=== PATIENT | male | born 1990 ===

== ENCOUNTER → 2019-05-12 | Outpatient (CLI) | payer OTHER | LOC: MHCPAIN 08:46 | DX: G89.29 Other chronic pain (principal); M47.817 Spondylosis without myelopathy or radiculopathy, lumbosacral region; M53.3 Sacrococcygeal disorders, not elsewhere classified | CPT/HCPCS: G0463 ==

== ENCOUNTER → 2019-05-15 | Outpatient (CLI) | payer OTHER | LOC: MHCPAIN 07:42 | DX: M47.817 Spondylosis without myelopathy or radiculopathy, lumbosacral region (principal); M53.3 Sacrococcygeal disorders, not elsewhere classified; M54.16 Radiculopathy, lumbar region | CPT/HCPCS: G0260; J1040; Q9967 ==

== ENCOUNTER → 2019-05-26 | Outpatient (CLI) | payer OTHER | LOC: MHCPAIN 09:30 | DX: G89.29 Other chronic pain (principal); M47.817 Spondylosis without myelopathy or radiculopathy, lumbosacral region; M53.3 Sacrococcygeal disorders, not elsewhere classified | CPT/HCPCS: G0463 ==

== ENCOUNTER → 2019-06-05 | Outpatient (CLI) | payer OTHER | LOC: MHCPAIN 13:45 | DX: M54.5 Low back pain (principal) ==

== ENCOUNTER → 2019-06-09 | Outpatient (CLI) | payer OTHER | LOC: MHCPAIN 10:06 | DX: M47.817 Spondylosis without myelopathy or radiculopathy, lumbosacral region (principal); M53.3 Sacrococcygeal disorders, not elsewhere classified | CPT/HCPCS: G0463 ==

== ENCOUNTER → 2019-07-03 | Outpatient (CLI) | payer OTHER | LOC: MHCPAIN 08:05 | DX: M54.5 Low back pain (principal) ==

== ENCOUNTER → 2019-07-23 | Outpatient (CLI) | payer OTHER | LOC: MHCPAIN 13:53 | DX: M47.817 Spondylosis without myelopathy or radiculopathy, lumbosacral region (principal); M53.3 Sacrococcygeal disorders, not elsewhere classified | CPT/HCPCS: G0463 ==

== ENCOUNTER → 2019-08-14 | Outpatient (CLI) | payer OTHER | LOC: MHCPAIN 09:39 | DX: M54.5 Low back pain (principal); G89.29 Other chronic pain | CPT/HCPCS: J1100; J2250; J3010 ==

== ENCOUNTER → 2019-11-18 | Outpatient (CLI) | payer OTHER | LOC: MHCPAIN 08:42 | DX: M47.817 Spondylosis without myelopathy or radiculopathy, lumbosacral region (principal); M54.5 Low back pain; G89.29 Other chronic pain; M53.3 Sacrococcygeal disorders, not elsewhere classified | CPT/HCPCS: G0463 ==